=== PATIENT | female | born 1950 | race Caucasian/White ===

== ENCOUNTER → 2021-11-16 11:47 | Outpatient (CLI) | payer MEDICARE, BC, SELFPAY ==
--- NOTE | ~2021-11-16 | XR_ITS ---
XR wrist RT min 3V DATE: 11/16/2021 12:00 INDICATION: Right wrist pain TECHNIQUE: 4 views COMPARISON: None FINDINGS: There is narrowing at the triscaphe joint. There is narrowing and eburnation at the first c arpometacarpal joint. There is osteoarthritic narrowing at the distal interphalangeal joints particularly at the second and third digits. No erosive change is evident. No fracture, dislocation, periosteal reaction or bone destruction is detected. IMPRESSION: Polyarticular osteoarthritis Reviewed, dictated and finalized at location A.
== END ==
PROVIDERS: PCP Physician Assistant Medical
DX: M19.031 Primary osteoarthritis, right wrist (principal)
CPT/HCPCS: 73110

== ENCOUNTER 2021-11-23 02:01 | Day surgery (SDC) | payer MEDICARE, BC, SELFPAY ==
--- NOTE | ~2021-11-23 | BM_ITS ---
EXAMINATION: CCL bone marrow asp w bx diag DATE: 11/23/2021 09:44 INDICATION: Leukocytosis. TECHNIQUE: A time-out was performed to verify the patient's name, date of , and procedure to b e performed. The procedure including the risks, benefits, and alternatives was discussed with the pat ient. Risks discussed included bleeding and infection. The patient understood the risks and agreed to proceed. The skin overlying the left ilium was prepped and draped in usual sterile fashion. Anesth etic was administered with 1% lidocaine subcutaneously. Moderate sedation was achieved with 1 mg Vers ed IV and 50 mcg fentanyl IV. An 11 gauge needle was inserted into the ilium with fluoroscopic jay nce. Bone marrow was aspirated. An 8 gauge needle was then inserted into the ilium with fluoroscopic guidance. A core bone marrow biopsy was obtained. There were no immediate complications. Fluoroscopy exposure time was 0.1 minutes. The total number of images was 10. FINDINGS: Real-time fluoroscopy demonstrates a marker overlying the left posterior superior iliac spi ne. IMPRESSION: 1. Fluoro-guided bone marrow aspiration. 2. Fluoro-guided bone marrow core biopsy. Reviewed, dictated and finalized at location A.
[2021-11-23 07:46] LABS: Hematocrit 51.4 % (37.0-47.0); Hemoglobin 15.1 g/dL (12.0-15.0); Mean Corpuscular HGB Conc 29.4 g/dl (32-36); Mean Corpuscular Hemoglobin 21.4 pg (26-34); Mean Corpuscular Volume 72.9 fl (80-100); Mean Platelet Volume 9.7 fl (7.4-10.4); Platelet Count Result 532 k/mm3 (150-375); Red Blood Count 7.05 M/mm3 (4.2-5.4); Red Cell Distribution Width 20.8 % (11.5-14.5); White Blood Count 27.3 K/mm3 (4.5-10.0)
[2021-11-23 07:55] VITALS: BMI 28.6
[2021-11-23 08:22] LABS: Partial Thromboplastin Time 31.9 SECONDS (22.3-36.8)
--- NOTE | 2021-11-23 09:05 | WPDMODSED ---
Moderate Sedation Note-Pt Data Patient Data Diagnosis: Leukocytosis. Present Complaint: Leukocytosis. Procedure to be performed/Plan: Fluoro-guided bone marrow biopsy of ilium. Allergies Allergy/AdvReac Type Severity Reaction Status Date / Time morphine Allergy Intermediate Itching Verified 11/23/21 07:37 codeine Allergy Unknown unknown Verified 11/23/21 07:37 Home Medications Medication Instructions Recorded Confirmed Type aspirin 81 mg tablet,delayed 81 mg PO DAILY 05/14/19 11/22/21 History release (Adult Low Dose Aspirin) lisinopril 10 1 tablet PO DAILY #90 tabs 06/08/21 11/22/21 Rx mg-hydrochlorothiazide 12.5 mg tablet atorvastatin 10 mg tablet 10 mg PO DAILY #90 tabs 07/11/21 11/22/21 Rx metformin 500 mg tablet,extended 500 mg PO BID #180 tabs 07/11/21 11/22/21 Rx release 24 hr montelukast 10 mg tablet 10 mg PO DAILY #90 tabs 10/01/21 11/22/21 Rx (Singulair) olopatadine 0.6 % nasal spray 2 spray intranasal ONCE #30.5 grams 10/01/21 11/22/21 Rx (Patanase) cetirizine 10 mg tablet (Zyrtec) 10 mg PO DAILY 11/22/21 11/22/21 History diphenhydramine HCl 25 mg capsule 50 mg PO HS 11/22/21 11/22/21 History (Benadryl) ergocalciferol (vitamin D2) 1,250 1,250 mcg PO WEEKLY 11/22/21 11/22/21 History mcg (50,000 unit) capsule famotidine 20 mg tablet 20 mg PO DAILY PRN Gastric Reflux 11/22/21 11/22/21 History metoprolol succinate 100 mg 100 mg PO BID 11/22/21 11/22/21 History tablet,extended release 24 hr mometasone 50 mcg/actuation nasal 1 spray intranasal DAILY 11/22/21 11/22/21 History spray olopatadine 0.1 % eye drops 1 drp EACH EYE DAILY 11/22/21 11/22/21 History pantoprazole 40 mg tablet,delayed 40 mg PO DAILY 11/22/21 11/22/21 History release simethicone 125 mg capsule (Gas 125 mg PO DAILY PRN Stomach Upset 11/22/21 11/22/21 History Relief (simethicone)) verapamil 180 mg 24 hr 180 mg PO DAILY 11/22/21 11/22/21 History capsule,extended release Sedation/Anesthesia: No previous sedation/anesthesia problems (including family history). [facility] Past Medical History Medical History Hiatal hernia with gastroesophageal reflux Obesity (BMI 30.0-34.9) SVT (supraventricular tachycardia) Xerostomia Surgical History Surgical History History of hysterectomy Family History Family History Sibling Asthma Family history of elevated blood lipids Hypertension Carcinoma of colon Father Family history of cardiovascular disease, Onset Age: 65 Hypertension Family history of chronic obstructive pulmonary disease Family history of emphysema Mother Carcinoma of colon, Onset Age: 87 Family history of malignant neoplasm of stomach Social History Social History Smoking status: Never smoker Second hand tobacco smoke exposure: No Alcohol intake: never Mod Sed Physical Exam Physical Exam Pre Procedural Exam: Normal: Airway (Mallampati class II.), Lungs, Heart Rate, Heart Rhythm and Abdomen Hours since solid foods: 12 Hours since liquid intake: 12 Mallampati Classification: class II Internal Medicine - PN: Obj Da Labs CBC & Chem 7: 11/23/21 07:43 Labs: Laboratory Results - last 24 hr 11/23/21 11/23/21 07:43 07:43 WBC 27.3 H RBC 7.05 H Hgb 15.1 H Hct 51.4 H MCV 72.9 L MCH 21.4 L MCHC 29.4 L RDW 20.8 H Plt Count 532 H MPV 9.7 PT 13.0 INR 1.0 APTT 31.9 ASA Classification/Sedation ASA Classification/Sedation ASA Class: II Emergent: No Risks: Risks, benefits and alternatives explained and patient/family accepted plan for sedation. Patient re-evaluated immediately prior to sedation.
[2021-11-23 09:45] VITALS: BP 161/76; PULSE 70; RESP 16; O2SAT 95
[2021-11-23 10:00] VITALS: BP 155/74; PULSE 70; RESP 23; O2SAT 95
[2021-11-23 10:15] VITALS: BP 154/70; PULSE 69; RESP 26; O2SAT 96
== END 2021-11-23 10:40 | disposition home or self-care (01) ==
PROVIDERS: PCP Family Medicine; Referring Provider Internal Medicine Hematology & Oncology; Visit Provider Radiology Diagnostic Radiology
DX: D72.829 Elevated white blood cell count, unspecified (principal); Z79.82 Long term (current) use of aspirin; K21.9 Gastro-esophageal reflux disease without esophagitis; I47.1 Supraventricular tachycardia; K11.7 Disturbances of salivary secretion; Z79.899 Other long term (current) drug therapy; Z79.84 Long term (current) use of oral hypoglycemic drugs; K44.9 Diaphragmatic hernia without obstruction or gangrene
CPT/HCPCS: 36415; 38222; 85027; 85610; 85730; 88184; 88185; 88305; 88311; 88312; 88313; 88360; J1642; J2250; J3010; J7050

== ENCOUNTER 2022-01-25 07:56 | Outpatient (CLI) | payer MEDICARE, BC, SELFPAY ==
--- NOTE | ~2022-01-25 | MM_ITS ---
EXAMINATION: MM screening [facility] HISTORY: Screening TECHNIQUE: Craniocaudal and mediolateral oblique 3-D tomosynthesis images were obtained and synthetic 2-D images were generated. CAD analysis was submitted and interpreted. COMPARISON: Comparison to multiple prior studies sequentially, with oldest reviewed study dated 12/18. BREAST PARENCHYMAL COMPOSITION: There are scattered areas of fibroglandular density. FINDINGS: There is no evidence of suspicious mass, calcification, or architectural distortion to sugg est malignancy in either breast. There has been no suspicious interval change. IMPRESSION: 1. No mammographic evidence of malignancy. 2. Recommend routine screening mammography in one year. BI-RADS Category 1: Negative Reviewed, dictated and finalized at location A.
== END 2022-01-25 07:57 | disposition home or self-care (01) ==
LOC: ANHIMG 07:58
PROVIDERS: PCP Family Medicine; Visit Provider Family Medicine
DX: Z12.31 Encounter for screening mammogram for malignant neoplasm of breast (principal)
CPT/HCPCS: 77063; 77067

== ENCOUNTER 2023-06-05 12:40 | Outpatient (CLI) | payer MEDICARE, BC, SELFPAY ==
[2023-06-05 13:00] LABS: Basophils Absolute Auto 0.5 K/mm3 (0.0-0.1); Basophils Percent Auto 1.7 % (0.2-1.2); Eosinophils Absolute Auto 1.1 K/mm3 (0-0.3); Eosinophils Percent Auto 3.3 % (0-4.4); Hematocrit 47.1 % (37.0-47.0); Hemoglobin 13.3 g/dL (12.0-15.0); Immature Granulocyte Percent A 1.3 % (0-0.5); Lymphocytes Absolute Auto 2.36 K/mm3 (0.9-3.2); Lymphocytes Percent Auto 7.4 % (18.3-44.2); Mean Corpuscular HGB Conc 28.2 g/dl (32-36); Mean Corpuscular Hemoglobin 20.1 pg (26-34); Mean Corpuscular Volume 71.1 fl (80-100); Mean Platelet Volume 10.2 fl (7.4-10.4); Monocytes Absolute Auto 1.2 K/mm3 (0.1-0.6); Monocytes Percent Auto 3.9 % (2.6-8.5); Neutrophils Absolute Auto 26.3 K/mm3 (1.3-6.7); Neutrophils Percent Auto 82.4 % (45.5-73.1); Nucleated Red Blood Cells Perc 0.1 % (0.0-0.2); Platelet Count Result 591 k/mm3 (150-375); Red Blood Count 6.62 M/mm3 (4.2-5.4); Red Cell Distribution Width 19.9 % (11.5-14.5); White Blood Count 31.9 K/mm3 (4.5-10.0)
[2023-06-05 13:08] LABS: Hypochromasia 1+ (NORMAL); Platelet Estimate Increased (Adequate); Schistocytes None Seen (NORMAL)
[2023-06-05 13:09] LABS: Ovalocytes 1+ (NORMAL); Poikilocytosis 1+ (NORMAL)
[2023-06-05 16:50] LABS: Anion Gap 12 mmol/L (8-16); Blood Urea Nitrogen 7 mg/dL (7-17); Carbon Dioxide 25 mmol/L (22-30); Chloride 100 mmol/L (98-107); Estimated Glomerular Filt Rate > 60; Glucose 80 mg/dL (65-110); Potassium 4.4 mmol/L (3.4-5.0); Sodium 137 mmol/L (137-145)
[2023-06-05 20:51] LABS: Iron 27 ug/dL (37-170)
[2023-06-05 21:01] LABS: Percent Iron Saturation 6 % (20-50)
[2023-06-05 21:27] LABS: Ferritin 8.68 ng/mL (11.1-264)
== END 2023-06-05 12:41 | disposition home or self-care (01) ==
LOC: ANHLAB 12:43
PROVIDERS: PCP Family Medicine; Visit Provider Internal Medicine Hematology & Oncology
DX: D64.9 Anemia, unspecified (principal)
CPT/HCPCS: 36415; 80048; 82728; 83540; 83550; 85025

== ENCOUNTER 2023-07-23 10:02 | Outpatient (CLI) | payer MEDICARE, BC, SELFPAY ==
[2023-07-23 10:22] LABS: Hematocrit 55.9 % (37.0-47.0); Hemoglobin 17.1 g/dL (12.0-15.0); Mean Corpuscular HGB Conc 30.6 g/dl (32-36); Mean Corpuscular Hemoglobin 25.4 pg (26-34); Mean Corpuscular Volume 83.1 fl (80-100); Platelet Count Result 551 k/mm3 (150-375); Red Blood Count 6.73 M/mm3 (4.2-5.4); White Blood Count 34.1 K/mm3 (4.5-10.0)
[2023-07-23 10:31] LABS: Anisocytosis 1+ (NORMAL); Band Neutrophils Percent 1 % (0-6); Eosinophils Absolute Manual 0.34 K/mm3 (0.02-0.5); Eosinophils Percent Manual 1 % (0-4); Lymphocytes Absolute Manual 2.04 K/mm3 (1.1-4.5); Macrocytosis 1+ (NORMAL); Monocytes Percent Manual 5 % (3-9); Neutrophils Percent Manual 87 % (46-73); Platelet Estimate Increased (Adequate); Schistocytes None Seen (NORMAL); Total Cells Counted 100
[2023-07-23 11:04] LABS: Iron 129 ug/dL (37-170)
[2023-07-23 11:08] LABS: Anion Gap 10 mmol/L (8-16); Blood Urea Nitrogen 6 mg/dL (7-17); Calcium 9.9 mg/dL (8.4-10.2); Carbon Dioxide 28 mmol/L (22-30); Chloride 100 mmol/L (98-107); Estimated Glomerular Filt Rate > 60; Glucose 96 mg/dL (65-110); Sodium 138 mmol/L (137-145)
[2023-07-23 11:13] LABS: Percent Iron Saturation 32 % (20-50)
== END 2023-07-23 10:03 | disposition home or self-care (01) ==
LOC: ANHLAB 10:04
PROVIDERS: PCP Family Medicine; Visit Provider Internal Medicine Hematology & Oncology
DX: D64.9 Anemia, unspecified (principal)
CPT/HCPCS: 36415; 80048; 82728; 83540; 83550; 85025

== ENCOUNTER 2023-09-17 13:53 | Outpatient (CLI) | payer MEDICARE, BC, SELFPAY ==
[2023-09-17 10:28] LABS: Hematocrit 58.1 % (37.0-47.0); Hemoglobin 17.8 g/dL (12.0-15.0); Mean Corpuscular HGB Conc 30.6 g/dl (32-36); Mean Corpuscular Hemoglobin 26.6 pg (26-34); Mean Corpuscular Volume 86.7 fl (80-100); Mean Platelet Volume 9.7 fl (7.4-10.4); Platelet Count Result 342 k/mm3 (150-375); Red Cell Distribution Width 18.8 % (11.5-14.5)
[2023-09-17 10:34] LABS: Band Neutrophils Percent 2 % (0-6); Lymphocytes Absolute Manual 2.24 K/mm3 (1.1-4.5); Monocytes Absolute Manual 0.96 K/mm3 (0.1-0.90); Monocytes Percent Manual 3 % (3-9); Neutrophils Percent Manual 88 % (46-73); Total Cells Counted 100
[2023-09-17 10:35] LABS: Platelet Estimate Adequate (Adequate); Schistocytes None Seen
[2023-09-17 14:14] LABS: Anion Gap 5 mmol/L (4-12); Blood Urea Nitrogen 7 mg/dL (7-17); Carbon Dioxide 32 mmol/L (22-30); Chloride 100 mmol/L (98-107); Estimated Glomerular Filt Rate > 60; Glucose 96 mg/dL (65-110); Potassium 4.3 mmol/L (3.4-5.0); Sodium 137 mmol/L (137-145)
[2023-09-17 17:05] LABS: Iron 264 ug/dL (37-170)
[2023-09-17 17:16] LABS: Percent Iron Saturation 60 % (20-50)
== END 2023-09-17 14:00 | disposition home or self-care (01) ==
LOC: ANHLAB 03-29 13:53
PROVIDERS: PCP Family Medicine; Visit Provider Internal Medicine Hematology & Oncology
DX: D64.9 Anemia, unspecified (principal)
CPT/HCPCS: 36415; 80048; 82728; 83540; 83550; 85025

== ENCOUNTER 2024-03-16 09:18 | Outpatient (CLI) | payer MEDICARE, BC, SELFPAY ==
[2024-03-16 09:33] LABS: Hematocrit 55.2 % (37.0-47.0); Hemoglobin 16.4 g/dL (12.0-15.0); Mean Corpuscular HGB Conc 29.7 g/dl (32-36); Mean Corpuscular Hemoglobin 24.4 pg (26-34); Mean Platelet Volume 9.9 fl (7.4-10.4); Platelet Count Result 235 k/mm3 (150-375); Red Blood Count 6.73 M/mm3 (4.2-5.4); Red Cell Distribution Width 19.7 % (11.5-14.5); White Blood Count 18.2 K/mm3 (4.5-10.0)
[2024-03-16 10:15] LABS: Anion Gap 11 mmol/L (4-12); Blood Urea Nitrogen 5 mg/dL (7-17); Calcium 9.7 mg/dL (8.4-10.2); Carbon Dioxide 28 mmol/L (22-30); Chloride 91 mmol/L (98-107); Estimated Glomerular Filt Rate > 60; Glucose 102 mg/dL (65-110); Sodium 130 mmol/L (137-145)
[2024-03-16 16:36] LABS: Iron 39 ug/dL (37-170)
[2024-03-16 16:47] LABS: Percent Iron Saturation 9 % (20-50)
== END 2024-03-16 09:19 | disposition home or self-care (01) ==
LOC: ANHLAB 09:20
PROVIDERS: PCP Family Medicine; Visit Provider Internal Medicine Hematology & Oncology
DX: D64.9 Anemia, unspecified (principal)
CPT/HCPCS: 36415; 80048; 82728; 83540; 83550; 85027

== ENCOUNTER 2024-05-25 14:29 | Outpatient (CLI) | payer MEDICARE, BC, SELFPAY ==
--- NOTE | 2024-05-25 14:49 | ECHO_ITS ---
Patient Info Name: Dang Arzola Age: 74 years : 1950 Gender: Female Ht: 69 in Wt: 186 lbs BSA: 2.04 m2 HR: 70 bpm BP: 178 / 92 mmHg Technical Quality: Fair Exam Date: 05/25/2024 3:05 PM Exam Location: Echo Lab Patient Status: Outpatient Admit Date: 05/25/2024 Staff Ordering Physician: Pillo Altman MD Soda Drier Feeder: uPma Keating RDCS Attending Provider: Pillo Altman MD Referring Physician: Agapito LEWIS; Exam Type: CA echo doppler color flow Study Info Indications R01.1 - Cardiac murmur, unspecified Complete two-dimensional, color flow and Doppler transthoracic echocardiogram is performed. Summary 1. Complete two-dimensional, color flow and Doppler transthoracic echocardiogram is performed. 2. Left ventricular chamber dimension is normal. 3. Left ventricular systolic function is normal, estimated at 65-70%. 4. The left ventricular diastolic function is normal. 5. Left atrial chamber dimension is moderately enlarged. 6. The mitral valve has mildly calcified leaflets. 7. There is mild mitral valve regurgitation. 8. There is trace tricuspid valve regurgitation. 9. Mild pulmonary hypertension, estimated pulmonary arterial systolic pressure is 43 mmHg. 10. There is trace pulmonic regurgitation. Left Ventricle Left ventricular chamber dimension is normal. Left ventricular systolic function is normal, estimated at 65-70%. The left ventricular diastolic function is normal. Right Ventricle Right ventricular systolic function is normal and with normal TAPSE 2.4 cm.. Right ventricular chamber dimension is normal. Left Atria Left atrial chamber dimension is moderately enlarged. Right Atria Right atrial chamber dimension is normal. Aortic Valve The aortic valve is trileaflet. There is no aortic valve stenosis. There is no aortic valve regurgitation. Pulmonic Valve There is trace pulmonic regurgitation. Mitral Valve The mitral valve has mildly calcified leaflets. There is no mitral valve stenosis. There is mild mitral valve regurgitation. Tricuspid Valve There is trace tricuspid valve regurgitation. Mild pulmonary hypertension, estimated pulmonary arterial systolic pressure is 43 mmHg. Pericardium/Pleural There is no pericardial effusion. Inferior Vena Cava Normal inferior vena cava with >50% collapse upon inspiration consistent with normal right atrial pressure, 5 mmHg. Aorta The aortic root size at the sinus of Valsalva is normal. Left Ventricular Outflow Tract Name Value Normal LVOT 2D LVOT Diameter 2.0 cm LVOT Doppler LVOT Peak Gradient 7 mmHg LVOT Mean Gradient 3 mmHg LVOT VTI 28 cm LVOT VTI/AV VTI Ratio 1.1 LVOT Stroke Volume 93 ml LVOT CO 6.2 l/min LVOT CI 3.0 l/min/m2 Pulmonic Valve Name Value Normal PV Doppler PV Peak Gradient 4 mmHg PV Regurgitation Doppler UT Peak End Diastolic Velocity 102 cm/s Mitral Valve Name Value Normal MV Doppler MV Decel Avery 522 cm/s2 MV PHT 65 ms MV Area (PHT) 3.4 cm2 4.0-5.0 MV Diastolic Function MV E Peak Velocity 117 cm/s MV A Peak Velocity 94 cm/s MV E/A 1.2 MV Decel Time 225 ms Tricuspid Valve Name Value Normal TV Regurgitation Doppler TR Peak Velocity 309 cm/s TR Peak Gradient 27 mmHg Estimated PAP/RSVP RA Pressure 5 mmHg <=5 PA Systolic Pressure 43 mmHg <36 RV Systolic Pressure 43 mmHg <36 Aorta Name Value Normal Ascending Aorta Ao Root Diameter (MM) 2.4 cm Ao Root Diam Index (MM) 1.2 cm/m2 Aortic Valve Name Value Normal AV Doppler AV Peak Velocity 136 cm/s AV Peak Gradient 7 mmHg AV Mean Gradient 3 mmHg AV VTI 26 cm AV Area (Cont Eq VTI) 3.5 cm2 >=3.0 AV Area (Cont Eq Kirk) 3.3 cm2 AV Regurgitation 2D LVOT Area 3.3 cm2 Ventricles Name Value Normal LV Dimensions 2D/MM IVS Diastolic Thickness (2D) 1.0 cm 0.6-1.0 IVS Diastole Thickness (MM) 0.9 cm 0.6-0.9 LVID Diastole (2D) 5.1 cm 3.8-5.2 LVID Diastole (MM) 5.2 cm 3.8-5.2 LVIW Diastolic Thickness (2D) 1.0 cm 0.6-0.9 LVIW Diastolic Thickness (MM) 0.8 cm 0.6-0.9 LVID Systole (2D) 2.3 cm 2.2-3.5 LVID Systole (MM) 3.2 cm 2.2-3.5 LVOT Diameter 2.0 cm LV Mass (2D Cubed) 180.72 g 67.00-162.00 LV Mass Index (2D Cubed) 88 g/m2 43-95 Relative Wall Thickness (2D) 0.39 LV Mass (MM Cubed) 161.19 g 67.00-162.00 LV Mass Index (MM Cubed) 79 g/m2 43-95 Relative Wall Thickness (MM) 0.31 LV Fractional Shortening/Ejection Fraction 2D/MM LV Fractional Shortening (2D) 54 % 27-45 LV Fractional Shortening (MM) 39 % 27-45 LV EF (MM Teicholz) 69 % 54-74 LV EF (2D Teicholz) 85 % 54-74 LV Diastolic Volume (4C MOD) 67 ml LV EF (4C MOD) 77 % LV Diastolic Volume (2C MOD) 47 ml LV EF (2C MOD) 72 % LV Diastolic Volume (BP MOD) 56 ml 46-106 LV Diastolic Volume Index (BP MOD) 28 ml/m2 29-61 LV Systolic Volume (BP MOD) 14 ml 14-42 LV Systolic Volume Index (BP MOD) 7 ml/m2 8-24 LV EF (BP MOD) 75 % 54-74 LV Diastolic Length (4C) 8.1 cm LV Systolic Length (4C) 6.7 cm LV Stroke Volume (4C MOD) 51 ml Atria Name Value Normal LA Dimensions LA Dimension (MM) 4.9 cm 2.7-3.8 LA Volume (4C A-L) 51 ml LA Volume (BP A-L) 54 ml RA Dimensions RA Area (4C) 13.6 cm2 <=18.0 Report Signatures
== END 2024-05-25 14:30 | disposition home or self-care (01) ==
LOC: ANHCARD 14:30
PROVIDERS: PCP Family Medicine; Visit Provider Family Medicine
DX: R01.1 Cardiac murmur, unspecified (principal); R53.83 Other fatigue; I47.10 Supraventricular tachycardia, unspecified; I08.3 Combined rheumatic disorders of mitral, aortic and tricuspid valves
CPT/HCPCS: 93306

== ENCOUNTER 2024-06-02 10:13 | Outpatient (CLI) | payer MEDICARE, BC, SELFPAY ==
--- NOTE | 2024-06-30 19:34 | P.SLEEP_ITS ---
Sleep Study Date of Study: 06/02/24 Ordering Provider: Pillo Altman MD Interpreting Physician: Gabi Wong DO Sleep Study Type: Polysomnogram Height: 1.75 m Weight: 84.368 kg Body Mass Index: 27.4 Neck Circumference (inches): 14 [place]: 5 Reason for Sleep Study Cardiac comorbidities Sleep History The patient is a 74-year-old male that had a sleep study ordered by his primary care physician for evaluation of sleep apnea. The patient denies awakening from sleep short of breath. She occasionally awakens at night with heartburn, belching or cough. She denies snoring. She occasionally has trouble sleeping when he has cold. She denies waking gasping for air throughout the night. She denies having breathing problems at night observed by himself or others. She denies sweating excessively at night. She occasionally has heart palpitations or irregular heartbeats during the night. She occasionally falls asleep during the day but never while driving. She denies sleep paralysis, cataplexy and hypnagogic / hypnopompic hallucinations. She denies having trouble at school or work due to sleepiness. She denies feeling afraid of going to sleep. She denies having nightmares. She rarely remembers his dreams. She denies having thoughts racing through his mind. She denies feeling sad, depressed and anxious. She denies having muscular tension. She denies noticing parts of his body jerk. She denies kicking during the night. She denies having crawling and aching feelings in her legs and denies having leg pain during night. She occasionally grinds her teeth during sleep never awakens with morning jaw pain. She is occasionally bothered by pain during the day but never awakened by pain during the night. She occasionally wakes up feeling stiff in the morning. She denies waking up with sore or achy muscles. She denies waking up with pain in the neck, spine and other joints. She goes to bed between 9-10 p.m. on both weekdays and weekends. It takes her 1 hour to fall asleep. She wakes up 2-3 times per night to urinate and is able to fall back asleep within 5 minutes. She wakes up between 4-5 a.m. on both weekdays and weekends. She typically gets 5-8 hours of sleep per night. She will stay in bed for 1-2 hours after waking up in the morning. She currently lives with his 2 children. She denies consuming any caffeinated beverages within 2 hours of bedtime. She denies engaging in physical exercise before bedtime. She will watch television before falling asleep. She will take naps in the afternoon or the evening but they are not refreshing. She consumes 1 caffeinated beverage per day. She denies tobacco, alcohol and recreational drug use. [facility] Past Medical History Medical History Sleep apnea Xerostomia Obesity (BMI 30.0-34.9) Hiatal hernia with gastroesophageal reflux SVT (supraventricular tachycardia) Surgical History Surgical History History of hysterectomy Family History Family History Sibling Asthma Family history of elevated blood lipids Hypertension Carcinoma of colon Father Family history of cardiovascular disease, Onset Age: 65 Hypertension Family history of chronic obstructive pulmonary disease Family history of emphysema Mother Carcinoma of colon, Onset Age: 87 Family history of malignant neoplasm of stomach Social History Social History Smoking status: Never smoker Second hand tobacco smoke exposure: No Alcohol intake: never Lack of Transportation: No Lack of Food: Never True Current Housing: I Have Housing Concerned About Future Housing: No Difficulty Paying Gas/Electric Bills: No Difficulty Paying for Meds: No Currently Unemployed: No Education: High School Diploma/GED Difficulty w/ Childcare or Family Care: No Spiritual care concerns: No Medications Home Medications ?Medication ?Instructions ?Recorded ?Confirmed ?Type aspirin 81 mg tablet,delayed 81 mg PO DAILY 05/14/19 05/07/24 History release (Adult Low Dose Aspirin) cetirizine 10 mg tablet (Zyrtec) 10 mg PO DAILY 11/22/21 05/07/24 History diphenhydramine HCl 25 mg capsule 50 mg PO HS 11/22/21 05/07/24 History (Benadryl) famotidine 20 mg tablet 20 mg PO DAILY PRN Gastric Reflux 11/22/21 05/07/24 History olopatadine 0.1 % eye drops 1 drp EACH EYE DAILY #5 mL 11/04/22 05/07/24 Rx hydroxychloroquine 200 mg tablet 200 mg PO DAILY 11/13/22 05/07/24 History (Plaquenil) alcohol swabs (Alcohol Pads) 1 pad topical DAILY PRN blood 12/09/23 05/07/24 Rx sugar monitoring #100 ea blood sugar diagnostic (OneTouch #100 ea 12/09/23 05/07/24 Rx Ultra Test strips) blood-glucose meter (OneTouch #1 ea 12/09/23 05/07/24 Rx Ultra2 Meter) lancets 31 gauge (Comfort Touch #100 ea 12/09/23 05/07/24 Rx Ultra Thin Lancets) ergocalciferol (vitamin D2) 1,250 See Rx Instructions .Route 03/26/24 05/07/24 Rx mcg (50,000 unit) capsule .COMPLEX #12 caps montelukast 10 mg tablet 10 mg PO DAILY #90 tabs 03/26/24 05/07/24 Rx (Singulair) olopatadine 0.6 % nasal spray 2 spray intranasal ONCE #30.5 grams 03/26/24 05/07/24 Rx (Patanase) pantoprazole 40 mg tablet,delayed See Rx Instructions .Route 03/26/24 05/07/24 Rx release .COMPLEX #90 tabs hydroxyurea 500 mg capsule 1,000 mg PO DAILY 05/07/24 05/07/24 History metformin 500 mg tablet,extended 500 mg PO .q12hr 05/07/24 05/07/24 History release 24 hr metoprolol succinate 100 mg 100 mg PO Q12H 05/07/24 05/07/24 History tablet,extended release 24 hr mometasone 50 mcg/actuation nasal See Rx Instructions .Route 06/14/24 Rx spray .COMPLEX #51 grams atorvastatin 10 mg tablet 10 mg PO DAILY #90 tabs 06/29/24 Rx clonidine HCl 0.1 mg tablet 0.1 mg PO Q12H #180 tabs 06/29/24 Rx lisinopril 10 1 tablet PO DAILY #90 tabs 06/29/24 Rx mg-hydrochlorothiazide 12.5 mg tablet spironolactone 50 mg tablet 50 mg PO DAILY #90 tabs 06/29/24 Rx verapamil 180 mg 24 hr 180 mg PO DAILY #90 caps 06/29/24 Rx capsule,extended release Sleep Procedure A full night polysomnogram using the [employer] multi-channel system recorded the standard physiologic parameters including EEG, EOG, submentalis EMG, anterior tibialis EMG, EKG, body position, nasal and oral airflow using nasal pressure sensor and thermistor.? Respiratory parameters of chest and abdominal movements were recorded with Respiratory Inductance Plethysmography belts. Oxygen saturation was recorded by pulse oximetry. Video monitoring was also performed. Sleep stages, periodic limb movements, and EEG arousals were scored in 30 second epochs according to the criteria of the AASM Scoring Manual. The Apnea-Hypopnea Index was calculated using [facility] guidelines for definition of hypopnea with 4% O2 desaturations while scoring respiratory events. Sleep Architecture The total recording time was 503.6 minutes.? The total sleep time was 148.0 minutes. Sleep latency was 52.8 minutes. REM sleep was not achieved during this study. Sleep efficiency was 29.4%. The patient had 66 awakenings for an awakening index of 26.8. Wake after sleep onset time was 302.5 minutes. The patient spent 71.5 minutes, 48.3% of total sleep time in Stage N1. The patient spent 73.5 minutes, 49.7% in Stage N2. The patient spent 3.0 minutes, 2.0% in Stage N3. The patient spent 0.0 minutes, 0.0% in Stage REM sleep. Respiratory Analysis The patient did not have any respiratory events throughout the study. The REM Apnea Hypopnea Index was 0. The NREM Apnea Hypopnea Index was 0. The patient had a Central Apnea Hypopnea Index of 0. There was no evidence of [place] Respirations. Arousals There were 124 total arousals for an arousal index of 50.3. There were 82 spontaneous arousals for an index of 33.2. There were 11 arousals due to respiratory events for an index of 4.5. There were 8 arousals due to periodic limb movements for an index of 3.2.? There were 23 arousals due to isolated limb movements for an index of 9.3. Periodic Limb Movements The patient had 47 isolated limb movements with an index of 19.1. The patient had 41 periodic limb movements with an index of 16.6, which is elevated (normal < 15). Patient had a total of 88 limb movements with a total limb movement index of 35.7. Oximetry Data The patient had an average oxygen saturation of 91.6% in sleep with a minimum oxygen saturation of 86.0% and a maximum oxygen saturation of 96.0%. The patient had 1 oxygen desaturation that were 4% or greater resulting in an Oxygen Desaturation Index of 0.4.? The patient spent 72.4 minutes, 14.8% of total sleep time with an oxygen saturation below 88%. Snoring Profile Snoring was not present during this study. Cardiac Profile The EKG showed normal sinus rhythm with frequent PVCs. There were several instances when the rhythm strip showed suspected heart block.?The patient had an average pulse rate of 65.1 bpm with a minimum pulse of rate of 57.0 bpm and a maximum pulse rate of 74.0 bpm.? EEG Profile No signs of seizure activity seen. Assessment and Plan Assessment and Plan (1) Nocturnal hypoxemia: Code(s): G47.34 - Idiopathic sleep related nonobstructive alveolar hypoventilation Status: Acute Assessment and Plan: The patient had an overall AHI of 0 with desaturation down to 86%. This is not consistent with sleep-disordered breathing. She spent the majority of the study propped up with 3 pillows and had a very poor sleep efficiency of <30%. The patient spent 72.4 minutes, 14.8% of the study with an SpO2<88%. She had hypoxemia in the absence of respiratory events, likely secondary to her pulmonary hypertension. Supplemental oxygen was not started during this study. I recommend that the patient use 1 lpm of supplemental oxygen while sleeping. I also recommend that the patient do a 6 MWT to see if she requires oxygen during the day. (2) Cardiac arrhythmia: Qualifiers: Arrhythmia type: unspecified cardiac arrhythmia Qualified Code(s): I49.9 - Cardiac arrhythmia, unspecified Code(s): I49.9 - Cardiac arrhythmia, unspecified Status: Acute Assessment and Plan: The patient had multiple segments of time where there was a suspected heart block. No previous EKG in system for comparison. Recommend 12-lead EKG, Holter monitor and cardiology consult. Data The data obtained during this sleep study is adequate for interpretation. Certification This sleep study has been reviewed by a board certified sleep medicine physician.
[2024-07-02 17:46] VITALS: BMI 27.4
== END 2024-06-03 06:07 | disposition home or self-care (01) ==
PROVIDERS: PCP Family Medicine; Visit Provider Family Medicine
DX: G47.34 Idiopathic sleep related nonobstructive alveolar hypoventilation (principal); I49.9 Cardiac arrhythmia, unspecified; R53.83 Other fatigue
CPT/HCPCS: 95810

== ENCOUNTER 2024-07-13 08:29 | Outpatient (CLI) | payer MEDICARE, BC, SELFPAY ==
--- NOTE | ~2024-07-13 | CT_ITS ---
EXAMINATION: CT sinus wo con DATE: 07/13/2024 08:52 INDICATION: Headache and dizziness. TECHNIQUE: Computed tomography (CT) of the paranasal sinuses was performed without intravenous contra st. Iterative reconstruction technique was employed. The dose-length product was 394.17 mGy-cm. COMPARISON: None FINDINGS: There is mild mucosal thickening in the frontal recesses and anterior ethmoid sinuses. The sphenoid and maxillary sinuses are clear. The ostiomeatal units are widely patent. Left middle turbin ate is partially paradoxical. There is rightward deviation of anterior nasal septum and a left latera l spur of posterior nasal septum. IMPRESSION: 1. Mild mucosal thickening in the frontal recesses and anterior ethmoid sinuses. 2. Rightward deviation of anterior nasal septum and a left lateral spur of posterior nasal septum. Reviewed, dictated and finalized at location B. NEER SERGEANT IMPRESSION: 1. Mild mucosal thickening in the frontal recesses and anterior ethmoid sinuses . 2. Rightward deviation of anterior nasal septum and a left lateral spur of post erior nasal septum.
--- NOTE | ~2024-07-13 | CT_ITS ---
CT Scan of the Chest without Contrast: Clinical Indication: Pulmonary hypertension Technique: Contiguous sections were acquired throughout the chest without intravenous contrast. Dose reduction technique was used on this scan by utilizing automated exposure control and iterative recon struction technique. The dose-length product (DLP) was 244.04 mGy-cm. Findings: There is no evidence of any significant mediastinal, hilar or axillary lymphadenopathy. The mediastin al soft tissues appear normal. There is no evidence of pleural or pericardial effusion. The lungs are clear. No pulmonary nodules or infiltrates are noted. Images through the upper abdomen reveal suspected partially imaged splenomegaly. Impression: No significant abnormality seen in the thorax. Suspected splenomegaly, partially imaged. Reviewed, dictated and finalized at location . PHYSICAL SCIENTIST Impression: No significant abnormality seen in the thorax. Suspected splenomegaly, partially imaged.
== END 2024-07-13 08:30 | disposition home or self-care (01) ==
PROVIDERS: PCP Family Medicine; Visit Provider Family Medicine
DX: I27.20 Pulmonary hypertension, unspecified (principal); I10 Essential (primary) hypertension; D75.1 Secondary polycythemia; G47.34 Idiopathic sleep related nonobstructive alveolar hypoventilation; I47.19 Other supraventricular tachycardia; J34.2 Deviated nasal septum
CPT/HCPCS: 70486; 71250

== ENCOUNTER 2024-07-13 09:18 | Outpatient (CLI) | payer MEDICARE, BC, SELFPAY ==
--- NOTE | 2024-07-13 13:05 | WPDPFTINT ---
PFT Procedure Performed PFT Procedure Performed Plethysmography (Lung Vol) Diffusing Cap (DLCO) Flow Vol Loop Spirometry w/o Bronchodil PFT Interpretation DOS: 07/13/2024 REQUESTING: Pillo Altman MD REASON FOR TESTING: Supraventricular tachycardia, polycythemia, hypoxemia PULMONARY FUNCTION TESTS including Maximum Inspiratory Pressure and Maximum Expiratory Pressure Results are reliable and reproducible. Repeatability of spirometry FEV1 maneuver is Grade A. Ramesh: GLI 2012 reference equations were used. The maximum inspiratory pressure testing and maximum expiratory pressure testing were performed first before the spirometry in order to get the best value achievable from the respiratory muscles. This avoided a respiratory muscle fatigue which may have underestimated the final values. Spirometry: The FEV1 is 1.79 L, 71%, mildly decreased. The FVC is 2.23 L, 68%, decreased. The FEV1/FVC ratio is 80%, normal. Lung volumes: The total lung capacity is 4.36 L, 75%, decreased. The residual volume is 2.11 L, 85%, normal. The RV/TLC is 48%, normal. Airway resistance is increased. Diffusion: DLCO is 22.4, 100% predicted, normal. The DLCO/VA is 6.04, 150%, above normal. Flow volume loop: The flow volume loop shows a truncation of the inspiratory limb. Additional testing Maximum inspiratory pressure is 37 cm of water; normal range 43.2-91.4 The patient's value is 55% predicted. Maximum expiratory pressure is 39 cm water; normal range 91.2-172.4. The patient's value is 30% predicted. MIP reflects the strength of the diaphragm and other inspiratory muscles including rib cage and sternocleidomastoid. MEP reflects the strength of the abdominal muscles and other expiratory muscles. IMPRESSION: This study shows a mild restrictive ventilatory impairment without obstruction. Spirometry shows uniformly reduced lung volumes consistent with restriction. Normal diffusion. This is a non-specific pattern. The low maximum inspiratory pressure and maximum expiratory pressure suggest respiratory muscle weakness. In patients with neuromuscular disorders, the reduction in vital capacity is generally more pronounced than the reduction in the maximum inspiratory pressure. This patient had the opposite pattern, the FVC is 68% and the MIP is 55%. MIP less than 60 cm water pressure is a significant finding. This can be associated with difficulty coughing and clearing secretions. Testing for accurate respiratory muscle strength is difficult to confirm. If additional testing is considered, more invasive testing can be considered including Sniff esophageal pressure, gastric pressure testing and diaphragm strength testing. These tests are not available at [place]. Susu Henderson MD
--- NOTE | 2024-07-13 14:02 | WPDSIXMINUTE ---
Six Minute Walk Procedure Procedure Performed Pulmonary Stress Test (6 min walk) Six Minute Walk Six Minute Walk: DATE OF SERVICE: 07/13/2024 REQUESTING: Pillo Altman MD REASON FOR TESTING: Supraventricular tachycardia, polycythemia, hypoxemia SIX MINUTE WALK This test was conducted per ATS guidelines. The initial saturation was 93%, and initial heart rate was 74 beats per minute. The patient walked without stopping, completing 274 m/900 ft. The saturation at the end of testing was 95%, and the heart rate was 74 beats per minute. IMPRESSION: This is a normal study. The patient did not require supplemental oxygen with exertion. Susu Henderson MD
== END 2024-07-13 09:19 | disposition home or self-care (01) ==
LOC: ANHPFT 09:19
PROVIDERS: PCP Family Medicine; Visit Provider Family Medicine
DX: I49.9 Cardiac arrhythmia, unspecified (principal); G47.34 Idiopathic sleep related nonobstructive alveolar hypoventilation; R53.83 Other fatigue; I27.20 Pulmonary hypertension, unspecified; I10 Essential (primary) hypertension; D75.1 Secondary polycythemia; I47.19 Other supraventricular tachycardia; R94.2 Abnormal results of pulmonary function studies
CPT/HCPCS: 93242; 94200; 94375; 94618; 94726; 94729

== ENCOUNTER 2025-04-22 09:46 | Outpatient (CLI) | payer MEDICARE, BC, SELFPAY ==
--- NOTE | ~2025-04-22 | US_ITS ---
Examination: US abdomen complete Clinical History: polycythemia . Comparison: None Technique: Complete abdominal sonography Findings: Liver: Normal size. Normal echotexture. No intrahepatic biliary ductal dilatation. Normal hepatopedal flow main portal vein. Common duct: Normal caliber, 4 mm. Gallbladder: Stones. No wall thickening. No pericholecystic fluid. Spleen: Enlarged. Pancreas: Mostly obscured by bowel gas. Kidneys: A few cysts left kidney. Aorta: No aneurysmal dilatation. Retrohepatic IVC: Unremarkable. IMPRESSION: 1. Splenomegaly. 2. Gallstones. 3. No acute abnormality. Reviewed, dictated and finalized at location R.
== END 2025-04-22 09:47 | disposition home or self-care (01) ==
LOC: GOSHIMG 09:46
PROVIDERS: PCP Family Medicine; Visit Provider Internal Medicine Hematology & Oncology
DX: R16.1 Splenomegaly, not elsewhere classified (principal); K80.20 Calculus of gallbladder without cholecystitis without obstruction; D45 Polycythemia vera
CPT/HCPCS: 76700